=== PATIENT | male | born 1995 | race Caucasian/White ===

== ENCOUNTER 2017-02-07 21:53 | Emergency (ER) | payer OTHER ==
[~2017-02-07] VITALS: Ht 172.7 cm; Wt 57.2 kg
[~2017-02-07 21:53] MED LIST: ALBUAER2 INH; EPIN1INJ33 IM; SINGULAIR PO
[2017-02-07 21:55] VITALS: TEMP 36.9; Ht 172.7 cm; Wt 57.2 kg
[2017-02-07] MEDS ORDERED: OXYC1TAB3 PO (22:29)
[2017-02-07] MEDS ORDERED: OXYCODONE IR HOME PACK PO ONE (22:30)
--- NOTE | 2017-02-07 22:32 | DIAGNOSTIC IMAGING REPORT ---
R HAND MIN 3 VIEWS ROUTINE CLINICAL HISTORY: Right hand pain status post trauma COMPARISON: None. DISCUSSION: There is an acute fifth metacarpal neck fracture with fracture 70 degrees of vertex dorsal angulation. IMPRESSION: Angulated fifth metacarpal neck fracture. Electronically signed by: Clyde aDy M.D. 02/07/2017 10:31 PM Dictated Date/Time: 02/07/2017 10:30 PM
[2017-02-07] MEDS ORDERED: DIPH1TAB87 PO (23:00)
[2017-02-07] MEDS ORDERED: IBUP-103 PO (23:00)
[2017-02-07] MEDS ORDERED: EPP3/2 IM (23:00)
[2017-02-07] MEDS ORDERED: MONT1TAB3 PO (23:00)
--- NOTE | 2017-02-07 23:00 | EMERGENCY ROOM VISIT NOTE ---
ED Visit Note First contact with patient: 22:09 CHIEF COMPLAINT: Hand injury HISTORY OF PRESENT ILLNESS: This 21 yo patient presented to the emergency department with friend after they injured the right hand after punching a fridge. The patient rates the pain as throbbing and 7/10. The patient denies any numbness or tingling. The patient does not have injuries to the wrist. The patient has not had a previous fracture to this hand. REVIEW OF SYSTEMS: A 6 system review of systems was completed with positives and pertinent negatives in the HPI. ALLERGIES: none MEDICATIONS: none PMH: Medical Problems: (1) Acute Conjunctivitis Nos Status: Resolved (2) Acute Sinusitis Nos Status: Resolved (3) Asthma Status: Chronic (4) Bronchitis Nos Status: Resolved SOCIAL HISTORY: no drug use PHYSICAL EXAM: Vital Signs: Reviewed Nurse's notes, vital signs mildly hypertensive. GENERAL: pleasant male, in no acute distress, but appears to be in pain, well-developed, well-nourished. MUSCULOSKELETAL: There is 5th MCP deformity of the right hand. There is tenderness 5th MCP. There is no thenar or hypothenar eminence atrophy. Normal thumb opposition to all fingers. 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 There is no laceration. Capillary refill less than 2 seconds. No tenderness of the fingers or wrist. Full range of motion of the wrist. No snuff box tenderness. Radial pulse 2+. NEURO: Alert and oriented to person, place, and time. Normal sensation to light and sharp touch. EMERGENCY DEPARTMENT COURSE: I examined the patient. An x-ray of the right hand was reviewed by myself and radiology and shows R HAND MIN 3 VIEWS ROUTINE CLINICAL HISTORY: Right hand pain status post trauma COMPARISON: None. DISCUSSION: There is an acute fifth metacarpal neck fracture with fracture 70 degrees of vertex dorsal angulation. IMPRESSION: Angulated fifth metacarpal neck fracture. Electronically signed by: Clyde Day M.D.. Splinting Indication: 5th MCP fx Verbal consent obtained. Risks and benefits were explained with the usual customary discussion. The injured extremity was identified. The patient was prepped and measured for the placement of a ulnar gutter ortho-glass splint. Splint applied in the standard fashion over a layer of webril and secured using an elastic bandage. Set into a position of function. Normal neurovascular status after placement verified by me. The patient tolerated the procedure well and the care of the splint was discussed with the patient/family. No complications. Patient is advised to follow-up with orthopedics on Wednesday for definitive care for his fracture or here in the ER sooner for severe pain, numbness, tingling, worsening signs or symptoms or as needed. The patient was discharged home in good condition. Blood pressure is elevated and patient was referred back to family care. DIAGNOSIS: Right hand fifth metacarpal fracture DISCHARGE INSTRUCTIONS: As below Problem List Medical Problems: (1) Acute Conjunctivitis Nos Status: Resolved (2) Acute Sinusitis Nos Status: Resolved (3) Asthma Status: Chronic (4) Bronchitis Nos Status: Resolved Current/Historical Medications Scheduled Albuterol (Ventolin), 2 PUFFS INH QID [Singulair], 1 TAB PO DAILY Scheduled PRN Epinephrine (Auvi-Q), 1 APPLN IM UD PRN for ALLERGIC REACTION Oxycodone Immediate Rel Tab (Roxicodone Ir), 1-2 TAB PO Q4H PRN for Severe Pain Allergies Coded Allergies: No Known Allergies (Unverified , 09/08/14) Vital Signs Date Time Temp Pulse Resp B/P (MAP) Pulse Ox O2 Delivery O2 Flow Rate FiO2 02/07/17 21:55 36.9 90 18 146/77 97 Room Air Departure Information Impression Primary Impression: Closed hand fracture Dispostion Home / Self-Care Condition GOOD Prescriptions Oxycodone Immediate Rel Tab (ROXICODONE IR) 5 Mg Tab 1-2 TAB PO Q4H Y for Severe Pain, #15 TAB initial course Prov: Bhumi Plascencia ., NILS 02/07/17 Referrals Osorio Recio D.O. Forms HOME CARE DOCUMENTATION FORM, IMPORTANT VISIT INFORMATION Patient Instructions My [facility], ED [facility] Boxer Additional Instructions DO NOT drive, drink alcohol, operate machinery, or perform dangerous activities today. You were given medications in the ER that can affect your ability to safely function or operate a vehicle. Oxycodone (OxyIR) 5mg: Take 1-2 pills every four hours for breakthrough pain. Avoid alcohol, operating machinery or dangerous equipment, working on ladders or roofs, DRIVING, or situations where being under the influence may be dangerous. It is recommended to use an [id number]-rvo-[id number] stool softener such as Colace, 100mg twice daily while taking this medication to avoid constipation. Ibuprofen(Motrin, Advil) may be used for fever or pain. Use 600mg every six hours as needed. Take with food. Avoid using more than 2400mg in a 24 hour period. Do not use 2400mg per day for more than three consecutive days without physician direction. Prolonged inappropriate use can lead to stomach upset or ulcers. This medication can be taken if you need to drive, work, or perform activities which may be dangerous when taking narcotic pain medication. (AND/OR) Acetaminophen(Tylenol) may be used for fever or pain. Use 1000mg every six hours as needed. Avoid using more than 3000mg in a 24 hour period. This medication can be taken if you need to drive, work, or perform activities which may be dangerous when taking narcotic pain medication. Ice compresses for 20 minutes at a time four times daily for 2-3 days. Rest and elevate your injury. Do not get the splint wet. If your splint feels excessively tight, you have worsening pain, develop numbness or tingling, or your digits appear blue, loosen the temo wrap. Then reapply the temo wrap gently without removing the splint. If your symptoms are not quickly relieved return to the ER for re- evaluation. Continue current medications. Return to the ER immediately for any numbness, tingling, severe pain, extreme swelling in the extremity or as needed. Call Orthopedics Wednesday at 8 AM to arrange follow up for your injury.
[2017-02-07 23:04] VITALS: BP 139/67; PULSE 88; O2SAT 96
== END 2017-02-07 23:08 | disposition home or self-care (01) ==
LOC: C.EDB 21:55 → C.EDD 23:08
DX: S62.336A Displaced fracture of neck of fifth metacarpal bone, right hand, initial encounter for closed fracture (principal); W22.8XXA Striking against or struck by other objects, initial encounter; Y92.89 Other specified places as the place of occurrence of the external cause